=== PATIENT | male | born 1975 | race Caucasian/White ===

== ENCOUNTER 2017-09-29 09:06 | Emergency (ER) | payer OTHER ==
[~2017-09-29] VITALS: Ht 177.8 cm; Wt 103.8 kg
[~2017-09-29 09:06] MED LIST: ASPI-390 PO; IBUP-103 PO
[2017-09-29 09:12] VITALS: Ht 177.8 cm; Wt 103.8 kg
[2017-09-29] MEDS ORDERED: VALA1TAB31 PO (09:42)
[2017-09-29] MEDS ORDERED: TRAM-10 PO (09:42)
[2017-09-29 09:52] VITALS: BP 130/76; PULSE 61; TEMP 37.3; O2SAT 99
--- NOTE | 2017-09-29 17:01 | EMERGENCY ROOM VISIT NOTE ---
History First contact with patient: 09:16 Chief Complaint: RASH Stated Complaint: RASH,PAIN IN RIGHT GLUTE,SWELLING AROUND HIP History of Present Illness The patient is a 42 year old white male who presents to the Emergency Room with complaints of painful rash on his right buttock. It has been there for several days. The rash is posterior, near his gluteal cleft. The pain radiates around through his gluteal muscle. He denies any anterior hip pain. He does think that there is some minor swelling present laterally. No restriction of motion. He states he is able to sit fairly comfortably as long as he is on the left gluteus. He does have a history of chickenpox. No prior history of shingles. No involvement of the groin. No other complaints. He has been applying a triple antibiotic ointment topically without improvement. No other treatment. His accompanies him today. Review of Systems REVIEW OF SYSTEM: HEENT: No dizziness, visual problems, hearing loss, or tinnitus. There is no difficulty swallowing and no oral lesions are present. LYMPH: No adenopathy. PULMONARY: No cough, shortness of breath, sputum production or hemoptysis. CARDIOVASCULAR: No chest pain, palpitations, shortness of breath or peripheral edema. GASTROINTESTINAL: No diarrhea, constipation, nausea, vomiting, or abdominal pain. GENITOURINARY: No dysuria, frequency, urgency or nocturia. NEUROLOGIC: No weakness, muscle tenderness, epilepsy or history of neurological problems. MUSCULOSKELETAL: No history of joint tenderness/swelling. No history of arthritis or arthralgias. SKIN: No rashes or lesions. PSYCHIATRIC: No history of depression or mental illness. ENDOCRINE: No history of diabetes, thyroid disorders, or abnormal hair growth. Past Medical/Surgical History Previous surgeries: [place] tooth extraction Medical history: Significant for current rash otherwise unremarkable. Family History FHx: aneurysm Significant for hypertension and cancer. Parents are living. Social History Smoking Status: Never Smoker Smokeless Tobacco Use: No Alcohol Use: occasionally Drug Use: none Marital Status: Housing Status: lives with family Occupation Status: employed Current/Historical Medications Scheduled Ibuprofen Tab (Advil), 400-600 MG PO Q6H Valacyclovir Hcl (Valtrex), 1 TAB PO TID Scheduled PRN Tramadol (Ultram), 1-2 TAB PO Q6H PRN for Pain Physical Exam Vital Signs Date Time Temp Pulse Resp B/P (MAP) Pulse Ox O2 Delivery O2 Flow Rate FiO2 09/29/17 09:52 37.3 61 18 130/76 99 09/29/17 09:12 37.3 61 18 130/76 99 Room Air Physical Exam Gen.: Well-developed, well-nourished, middle-aged white male, in no acute distress. Obvious discomfort. Sitting on a bed. Alert and oriented. Skin:Warm and dry with good turgor. There is a red rash near his gluteal cleft. It does not cross midline. Dozens of small vesicles with erythematous bases. It is consistent with a herpes-type reaction. No ecchymosis. Very mild edema visible over the right lateral gluteus. The patient is not diaphoretic. No abrasions. Musculoskeletal: Supple motion of the right hip. Good internal and external rotation without pain. No pain with palpation over the greater trochanter, IT band, or anterior flexion crease. He does have discomfort with palpation over the gluteus charles. No pain with palpation over the left-sided musculature. Lymphatics: He has enlargement of the inguinal nodes. Mildly tender to touch. Neurologic: Gross sensation is intact across the right leg by soft touch. Peripheral pulses are 2+. Medical Decision & Procedures ED Course Patient and his were educated regarding today's findings. Conservative care measures were discussed. Given the vesicular rash and that it does not cross midline, likelihood for shingles was discussed. It does appear to involve the S2 and S3 dermatomes. He will be started on Valtrex 3 times a day 7 days. Follow-up with his PCP this week for reexamination. He was given a prescription for Ultram 50 mg to be used every 6 hours as needed for more severe pain. Tylenol and Motrin every 6 hours as needed for mild pain. Return to the ED for any acute worsening of symptoms. Possibility of cellulitis developing was discussed. He may continue with the topical antibiotic ointment but should have additional reevaluation if the redness is increasing. He was cautioned about exposure to immunocompromised individuals, infants, women, and the elderly. He may return to work as long as his employer does not have any contraindications. Medical Decision Possibility of cellulitis, septic joint, herpes zoster, other viral rash, and contact dermatitis were considered. [place] Drug Monitoring Program Search Results: no issues identified Medication Reconcilliation Current Medication List: was personally reviewed by me Blood Pressure Screening Patient's blood pressure: Normal blood pressure Impression Primary Impression: Shingles outbreak Departure Information Dispostion Home / Self-Care Condition GOOD Prescriptions Tramadol (Ultram) 50 Mg Tab 1-2 TAB PO Q6H Y for Pain, #20 TAB For Initial Treatment Prov: Bryson Baker,P.A. 09/29/17 Valacyclovir Hcl (VALTREX) 1 Gm Tab 1 TAB PO TID for 7 Days, #21 TAB Prov: Bryson Baker,P.A. 09/29/17 Forms WORK / SCHOOL INSTRUCTIONS, HOME CARE DOCUMENTATION FORM, TYLENOL USE, IMPORTANT VISIT INFORMATION Patient Instructions Shingles Herpes Zoster, My [facility] Additional Instructions Keep the area clean with soap and water Watch closely for any increasing redness or distribution to the other side Valtrex 1 pill 3 times a day 7 days Ultram every 6 hours as needed for more severe pain-you may supplement with Tylenol as well Follow-up with your PCP for reexamination later this week Return to the ED for any acute changes or worsening of symptoms, including anterior hip pain Problem Qualifiers Primary Impression: Shingles outbreak Herpes zoster complications: without complications Qualified Codes: B02.9 - Zoster without complications
== END 2017-09-29 09:53 | disposition home or self-care (01) ==
LOC: C.EDB 09:08 → C.EDA 09:53
DX: B02.9 Zoster without complications (principal); Z79.1 Long term (current) use of non-steroidal anti-inflammatories (NSAID); Z82.49 Family history of ischemic heart disease and other diseases of the circulatory system; Z80.9 Family history of malignant neoplasm, unspecified